=== PATIENT | female | born 1940 | race Caucasian/White ===

== ENCOUNTER → 2018-01-15 | Outpatient (CLI) | payer BC | LOC: FIMAGING 10:22 | PROVIDERS: ATTEND Internal Medicine Hematology & Oncology | DX: Z01.818 Encounter for other preprocedural examination (principal); Z96.1 Presence of intraocular lens ==

== ENCOUNTER 2018-01-27 11:23 | Outpatient (CLI) | payer BC ==
[2018-01-27] MEDS ORDERED: NALOXONE HCL 0.4 MG/ML INJ ONE (11:58)
[2018-01-27] MEDS ORDERED: MIDAZOLAM 2 MG/2 ML VIAL ONE (11:58)
[2018-01-27] MEDS ORDERED: FLUMAZENIL 0.5 MG/5 ML MDV IVP ONE (11:58)
[2018-01-27] MEDS ORDERED: fentaNYL 100 MCG/2 ML INJ ONE (11:59)
[2018-01-27] MEDS ORDERED: GADOBUTROL 10 ML VIAL IVP ONE (13:07)
[2018-01-27] MEDS ORDERED: MEPERIDINE 25 MG/ML SYR IVP PRN (13:30)
[2018-01-27] MEDS ORDERED: FLUMAZENIL 0.5 MG/5 ML MDV IVP PRN (13:30)
[2018-01-27] MEDS ORDERED: fentaNYL 100 MCG/2 ML INJ IVP PRN (13:30)
[2018-01-27] MEDS ORDERED: NS 1,000 ML IV SCH (13:30)
[2018-01-27] MEDS ORDERED: ONDANSETRON 4 MG/2 ML VIAL IVP ONE (13:30)
[2018-01-27] MEDS ORDERED: NALOXONE HCL 0.4 MG/ML INJ IVP PRN (13:30)
[2018-01-27] MEDS ORDERED: MIDAZOLAM 2 MG/2 ML VIAL IVP PRN (13:30)
--- NOTE | 2018-01-27 13:32 | PDPROPOC ---
Sedation Plan of Care Sedation Plan of Care: vital signs stable, mental status noted, patient educated of risks, benefits, alternatives, patient can tolerate sedation ASA Classification: ASA 1 Planned drugs: fentanyl, midazolam Mallampati Score: Class 2 Mallampati Reference Image: Patient passed 3-3-2 rule?: Yes
[2018-01-27] MEDS ORDERED: ACETAMINOPHEN 325 MG TAB PO PRN (15:18)
[2018-01-27] MEDS ORDERED: ONDANSETRON 4 MG/2 ML VIAL IVP PRN (15:18)
[2018-01-27 16:27] VITALS: BP 126/69
== END 2018-01-27 16:28 | disposition home or self-care (01) ==
LOC: FIMAGING 11:23
PROVIDERS: ATTEND Internal Medicine Hematology & Oncology
DX: L76.82 Other postprocedural complications of skin and subcutaneous tissue (principal); Z90.12 Acquired absence of left breast and nipple
CPT/HCPCS: 0159T; 77059; A9585; C8908; J2250; J2310; J2405; J3010

== ENCOUNTER → 2018-03-16 | Outpatient (CLI) | payer BC | LOC: FIMAGING 09:09 | PROVIDERS: ATTEND Internal Medicine | DX: Z13.820 Encounter for screening for osteoporosis (principal); M81.0 Age-related osteoporosis without current pathological fracture; Z78.0 Asymptomatic menopausal state ==